=== PATIENT | female | born 2000 | race Caucasian/White ===

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

== ENCOUNTER 2022-07-14 13:09 | Emergency (ER) | payer OTHER, SELFPAY ==
[2022-07-14 13:19] VITALS: BP 126/71; PULSE 71; RESP 16; TEMP 36.8; O2SAT 100
--- NOTE | 2022-07-14 13:24 | ED.URI ---
HPI - URI/Sore Throat General Chief Complaint: Upper Respiratory Infection Stated Complaint: Sore throat even after meds hot flashes Time Seen by Provider: 07/14/22 13:25 History of Present Illness HPI Narrative: 21 y/o female presented for c/o sore throat for 3 days. Endorses sinus congestion and yellow drainage with cough, and hot flashes. Denies sob, wheezing, n/v/d. Taking otc meds for symptoms. Related Data Home Medications Medication Instructions Recorded Confirmed No Home Medications 08/02/21 08/02/21 Allergies Allergy/AdvReac Type Severity Reaction Status Date / Time clindamycin AdvReac Intermediate nausea Verified 07/14/22 13:24 Review of Systems Review of Systems: CONSTITUTIONAL: Denies body aches, fever, chills EYES: Denies visual changes, redness, or discharge. ENT: reports rhinorrhea, congestion, denies otalgia. CARDIOVASCULAR: Denies chest pain, palpitations, or edema. RESPIRATORY: Denies dyspnea. GASTROINTESTINAL: Denies abdominal pain, nausea, vomiting, or diarrhea. MUSCULOSKELETAL: Denies back pain, joint pain, or myalgia. NEUROLOGIC: Denies headache Exam Narrative: GENERAL: well-appearing, no acute distress. EYES: conjunctivae clear ENT: Mucous membranes moist. TMs pearly walters with normal light reflex bilaterally; no tragal tenderness. Oropharynx erythematous without lesions. Tonsils enlarged 1+ and without exudate. No drooling, no hoarseness, no trismus, uvula midline. No tripod positioning, hot potato voice, or soft palate swelling. NECK: Supple. No lymphadenopathy CHEST: Clear to auscultation, breath sounds equal. HEART: Regular rate and rhythm. No murmur heard. SKIN: Warm, dry, no rash. NEURO: Alert and oriented x3. Course Course Emergency Course: Patient is aware of diagnosis, understands and agrees to treatment plan. Anticipatory guidance given. Patient agrees to follow-up as directed and is aware of reasons to seek care at the emergency department. Portions of this record may have been created with voice recognition software Level of Care: Express Care Visit Vital Signs Vital signs: Vital Signs Temperature 98.2 F 07/14/22 13:19 Pulse Rate 71 07/14/22 13:19 Respiratory Rate 16 07/14/22 13:19 Blood Pressure 126/71 07/14/22 13:19 Pulse Oximetry 100 07/14/22 13:19 Oxygen Delivery Room Air 07/14/22 13:19 Temperature 98.2 F 07/14/22 13:19 Pulse Rate 71 07/14/22 13:19 Respiratory Rate 16 07/14/22 13:19 Blood Pressure 126/71 07/14/22 13:19 Pulse Oximetry 100 07/14/22 13:19 Oxygen Delivery Room Air 07/14/22 13:19 MDM - URI/Sore Throat MDM Narrative Medical decision making narrative: strep result reviewed with pt. Advise supportive treatments. Patient is appropriate for outpatient treatment and follow-up. Differential Diagnosis Differential diagnosis: Likely upper respiratory infection, viral infection and pharyngitis Lab Data Labs: Strep Screen Presumptive Negative *(Reference Range: Negative)* Discharge Plan Discharge Clinical Impression: Pharyngitis Patient Disposition: Home, Self-Care Condition: Stable Instructions: Antibiotic Form, Upper Respiratory Infection (ED) Additional Instructions: Rapid strep swab was negative today You will be notified in a few days if the culture comes back positive for strep, and appropriate antibiotics will be called in at that time. if symptoms are due to a viral illness, it is not treated with antibiotics. Viral symptoms can be present for up to 10-14 days. Recommend Flonase spray and Zyrtec for sinus congestion Cough syrup may cause drowsiness; avoid driving or take it at night time. Tylenol every 8 hours as needed for pain/fever Soft foods, cool liquids, warm tea. Gargle with warm saltwater twice a day. Chloraseptic spray and throat lozenges. Rest and stay hydrated. --Follow up with your PCP if sy
== END 2022-07-14 13:46 | disposition home or self-care (01) ==
PROVIDERS: Emergency Provider Nurse Practitioner Family
DX: J02.9 Acute pharyngitis, unspecified (principal)
CPT/HCPCS: 87081; 87880; 99213; G0463

== ENCOUNTER 2022-08-10 13:10 | Emergency (ER) | payer OTHER, SELFPAY ==
--- NOTE | ~2022-08-10 | XR_ITS ---
EXAMINATION: XR chest 2V 08/10/2022 14:22 INDICATION: Cough PROCEDURE: 2 view chest COMPARISON: No prior studies for comparison. FINDINGS: The lungs are clear. The cardiomediastinal silhouette is within normal limits. There are no pleural effusions. There is no pneumothorax suspected. IMPRESSION: 1: NO ACUTE CARDIOPULMONARY DISEASE. Reviewed, dictated and finalized at location A. ING MANAGER
[2022-08-10 13:29] VITALS: BP 140/98; PULSE 90; RESP 16; TEMP 36.6; O2SAT 100
--- NOTE | 2022-08-10 14:57 | ED.URI ---
HPI - URI/Sore Throat General Chief Complaint: Upper Respiratory Infection Stated Complaint: coughing up blood Time Seen by Provider: 08/10/22 13:30 History of Present Illness HPI Narrative: 21-year-old female presents the emergency room for cough. Patient was seen at an outside emergency room couple of days ago was diagnosed with the flu. Patient states that she has been coughing and using [id number] medications which are not alleviating her symptoms. Patient states that she recently noticed small amounts of blood in her sputum when she coughs. Denies shortness of breath difficulty breathing. Related Data Home Medications Medication Instructions Recorded Confirmed No Home Medications 08/02/21 08/02/21 Allergies Allergy/AdvReac Type Severity Reaction Status Date / Time clindamycin AdvReac Intermediate nausea Verified 07/14/22 13:24 Review of Systems Review of Systems: CONSTITUTIONAL: Denies fever, chills, or sweats. EYES: Denies visual changes, redness, or discharge. ENT: Denies rhinorrhea, congestion, sore throat, or otalgia. CARDIOVASCULAR: Denies chest pain, palpitations, or edema. RESPIRATORY: Reports cough GASTROINTESTINAL: Denies abdominal pain, nausea, vomiting, or diarrhea. GENITOURINARY: Denies dysuria or hematuria. SKIN: Denies rash or itching. MUSCULOSKELETAL: Denies back pain, joint pain, or myalgia. NEUROLOGIC: Denies headache, numbness, dizziness, or weakness. PSYCHIATRIC: Denies anxiety or depression. Exam Narrative: GENERAL: Well-appearing, well-nourished, no physical limitations, and in no acute distress. HEAD: Normocephalic, atraumatic. EYES: Conjunctivae normal, PERRLA and EOMI. ENT: External nose normal, Nares clear, no rhinorrhea or epistaxis. Mucous membranes moist. Oropharynx without tonsillar hypertrophy exudate or other lesions. External ears normal, bilateral TMs normal bilaterally NECK: Supple. No adenopathy or masses. CHEST: Clear to auscultation. No respiratory distress. No wheezes rales or rhonchi. HEART: Regular rate and rhythm. No murmur heard. Normal peripheral pulses. EXTREMITIES: Normal range of motion. No edema. No clubbing or cyanosis SKIN: Warm, dry, no rash. No noted wounds NEURO: No focal deficits. Alert and oriented x3. MAEW. CN's II-XI intact bilaterally, normal gait PSYCH: Cooperative. Normal mood and affect. Course Vital Signs Vital signs: Vital Signs Temperature 36.6 C 08/10/22 13:29 Pulse Rate 90 08/10/22 13:29 Respiratory Rate 16 08/10/22 13:29 Blood Pressure 140/98 H 08/10/22 13:29 Pulse Oximetry 100 08/10/22 13:29 Oxygen Delivery Room Air 08/10/22 13:29 Temperature 36.6 C 08/10/22 13:29 Pulse Rate 90 08/10/22 13:29 Respiratory Rate 16 08/10/22 13:29 Blood Pressure 140/98 H 08/10/22 13:29 Pulse Oximetry 100 08/10/22 13:29 Oxygen Delivery Room Air 08/10/22 13:29 Discharge Plan Discharge Clinical Impression: Influenza, Cough Patient Disposition: Home, Self-Care Condition: Stable Instructions: Antibiotic Form, Influenza (ED) Additional Instructions: Recommend Tylenol and ibuprofen as needed for your body aches and fever. Also recommend Mucinex DM for your cough. Influenza is a self-limiting illness and your symptoms should resolve within 7 days. Recommend following up with your PCP. Prescriptions: No Action No Home Medications Follow-up/Referrals: Rafael Roe DO [Physician] - PHYSICIAN,[employer] [Primary Care Provider] - Time of Disposition: 15:03
== END 2022-08-10 15:19 | disposition home or self-care (01) ==
PROVIDERS: Emergency Provider Nurse Practitioner Family
DX: J11.1 Influenza due to unidentified influenza virus with other respiratory manifestations (principal); R05.9 Cough, unspecified
CPT/HCPCS: 71046; 99283

== ENCOUNTER 2023-03-17 16:22 | Emergency (ER) | payer OTHER, SELFPAY ==
[2023-03-17 16:28] VITALS: BP 141/70; PULSE 82; RESP 20; TEMP 37; O2SAT 100
--- NOTE | 2023-03-17 16:29 | ED.ABDPAIN ---
HPI - Abdominal Pain General Chief Complaint: Abdominal Pain Stated Complaint: stomach hurts,headache,diarrhea Time Seen by Provider: 03/17/23 16:30 Source: patient Mode of arrival: ambulatory Limitations: no limitations History of Present Illness HPI narrative: Nicholas is a 22-year-old female patient presenting to the clinic today abdominal cramping, nausea, headache, and diarrhea x3 days. She reports no known fever or chills. She denies sore throat. States that she has started in a new building at work and is exposed to new people. No known exposure to anybody with COVID, flu, or strep. Has had diarrhea 3 times today. No vomiting. Her significant other who lives at home with her has similar symptoms. Is requesting a work note Related Data Allergies Allergy/AdvReac Type Severity Reaction Status Date / Time clindamycin AdvReac Intermediate nausea Verified 07/14/22 13:24 Review of Systems Review of Systems: Pertinent positives per HPI. Patient denies any fever, chills, rash, visual changes, dizziness, shortness of breath, chest pain, palpitations, vomiting, constipation, or any urinary issues. PMFSH Comments At the time of my signature, I reviewed and agree with the nursing past medical, surgical, social, and family history. There is no relevant family history pertinent to the patient complaint. Exam Narrative: General: Well-developed, well nourished, in no apparent distress Head: Normocephalic, atraumatic Eyes: Pupils equally round and reactive to light bilaterally, EOM intact, sclera and conjunctive clear, no discharge, lids normal Ears: TMs intact and clear, ear canals clear, no drainage, grossly hearing normal. Nose: Nares patent, no discharge, no inflammation, no sinus tenderness. Mouth: Oral pharynx without lesions or masses, good dentition, MMM. Neck: Supple, trachea midline, no enlargement of anterior or posterior cervical nodes, no thyroid masses or goiter palpable. Cardio: Regular rate and rhythm, s1 and s2 normal, no murmur appreciated. Resp: Clear to auscultation bilaterally, no rhonchi, rales, wheezing or rubs Abdomen: Soft, pliable, bowel sounds present in all quadrants, non-tender to palpation, no organomegly, no CVAT tenderness. Course Course Emergency Course: Portions of this record may have been created with voice recognition software. Level of Care: Express Care Visit Vital Signs Vital signs: Vital signs reviewed MDM - Abdominal Pain MDM Narrative Medical decision making narrative: At the time of visit patient is resting comfortably on exam table. COVID and influenza testing was performed in the clinic today and was negative. I suspect patient has viral gastroenteritis. Prescription for Zofran and Levsin was sent to the pharmacy. Supportive measures were discussed with the patient she voiced understanding discharge instructions and agrees to treatment plan. Differential Diagnosis Differential diagnosis: Likely abdominal pain, acute appendicitis, constipation, gastroenteritis and other Discharge Plan Discharge Clinical Impression: Viral gastroenteritis Patient Disposition: Home, Self-Care Condition: Stable Instructions: Antibiotic Form, Gastroenteritis (ED) Additional Instructions: COVID and flu test negative in the clinic today. Take prescription medications only as prescribed-Zofran and Levsin Increase fluids and stay well hydrated Tylenol/motrin for pain/fever Flonase and OTC antihistamines as directed Vicks vapor rub to open sinuses Sinus rinses for congestion Cepacol spray, cough drops, throat lozenges, warm tea with honey/lemon, gargle salt water to soothe throat BRAT diet for diarrhea Clear liquids x 24 hours then advance as tolerated for nausea/vomiting Go to the ED if you develop a worsening in your condition- high fever not controlled by Tylenol or Motrin, dehydration, weakness, lethargy, shortness of breath, or chest pain. Follow
== END 2023-03-17 17:07 | disposition home or self-care (01) ==
PROVIDERS: Emergency Provider Nurse Practitioner Family
DX: A08.4 Viral intestinal infection, unspecified (principal); Z20.822 Contact with and (suspected) exposure to COVID-19
CPT/HCPCS: 87426; 87804; 99213; C9803; G0463

== ENCOUNTER 2024-03-12 16:19 | Emergency (ER) | payer OTHER, SELFPAY ==
[2024-03-12 16:27] VITALS: BP 129/78; PULSE 86; RESP 18; TEMP 36.9; O2SAT 100
--- NOTE | 2024-03-12 16:59 | ED.DENTAL ---
HPI - Dental/Oral General Chief complaint: Dental/Oral Stated complaint: wisdom tooth pain Time Seen by Provider: 03/12/24 16:45 Source: patient, RN notes reviewed and old records reviewed Mode of arrival: ambulatory Limitations: no limitations History of Present Illness HPI Narrative: 23 year old female who presents to [facility] care with complaints of dental pain to tissue in left bottom where wisdom tooth is coming in with redness and swelling and pain of gum noted. Patient reports that tooth feels like it is tying to come in sideways with increased pain since yesterday. Patient reports that she has been having intermittent pain to area for the past 2 months.She reports that she does not have dentist. MD Complaint: tooth pain Location: Tooth # (17) Onset (ago): month(s) (intermittent for 2 months with increased for past 2 days) Duration: constant Severity scale (1-10): 5 Treatment prior to arrival: none Related Data Home Medications Medication Instructions Recorded Confirmed Nexplanon 03/12/24 Allergies Allergy/AdvReac Type Severity Reaction Status Date / Time amoxicillin Allergy Swelling Verified 03/12/24 17:13 of Lip/Tongue/Throat clindamycin AdvReac Intermediate nausea Verified 03/12/24 16:26 Review of Systems Review of Systems: CONSTITUTIONAL: Denies fever, chills, or sweats. ENT: Denies rhinorrhea, congestion, sore throat, or otalgia. Reports dental pain to #17 tooth which is trying to come in with redness swelling and pain of gum CARDIOVASCULAR: Denies chest pain, palpitations, or edema. RESPIRATORY: Denies cough or dyspnea. SKIN: Denies rash or itching. MUSCULOSKELETAL: Denies myalgia. NEUROLOGIC: Denies headache All systems reviewed & are unremarkable except as noted in HPI and below PMFSH Past Medical History Medical History History of dental problems Surgical History Surgical History Previous section Social History Social History Smoking status: Current every day smoker Tobacco type: cigarettes Alcohol intake: current Alcohol use details: social Substance use type: does not use Gender identity (if verbalized by the patient): Female Comments At time of signature, agree with nursing past medical, surgical, social and family history. There is no relevant family history pertinent to the presenting complaint Exam Narrative: GENERAL: Well-appearing, well-nourished, and in no acute distress. HEAD: Normocephalic, atraumatic. EYES: PERRLA and EOMI. ENT: Nares clear, no rhinorrhea or epistaxis. Mucous membranes moist.Swelling with redness of gum above where #17 wisdom tooth is trying to come through, caries noted. No trismus or any Jesús angina noted NECK: Supple.no lymphadenopathy CHEST: Clear to auscultation. No respiratory distress.SAO2 100% on room air HEART: Regular rate and rhythm. No murmur heard. Normal peripheral pulses. SKIN: Warm, dry, no rash.acne to face NEURO: No focal deficits. Alert and oriented x3. Course Course Emergency Course: Patient is aware of diagnosis, understands and agrees to treatment plan. Anticipatory guidance given. Patient agrees to follow-up as directed and is aware of reasons to seek care at the emergency department. Portions of this record may have been created with voice recognition software Level of Care: Express Care Visit Vital Signs Vital signs: Vital Signs Temperature 36.9 C 03/12/24 16:27 Pulse Rate 86 03/12/24 16:27 Respiratory Rate 18 03/12/24 16:27 Blood Pressure 129/78 03/12/24 16:27 Pulse Oximetry 100 03/12/24 16:27 Oxygen Delivery Room Air 03/12/24 16:27 Temperature 36.9 C 03/12/24 16:27 Pulse Rate 86 03/12/24 16:27 Respiratory Rate 18 03/12/24 16:27 Blood Pressure 129/78 03/12/24 16:27 Pulse Oximet
== END 2024-03-12 17:15 | disposition home or self-care (01) ==
PROVIDERS: Emergency Provider Registered Nurse
DX: K08.89 Other specified disorders of teeth and supporting structures (principal); F17.210 Nicotine dependence, cigarettes, uncomplicated
CPT/HCPCS: 99213; G0463

== ENCOUNTER 2024-03-29 18:44 | Emergency (ER) | payer OTHER, SELFPAY ==
[2024-03-29 18:50] VITALS: BP 121/69; PULSE 88; RESP 20; TEMP 36.4; O2SAT 100
--- NOTE | 2024-03-29 18:59 | ED.URI ---
HPI - URI/Sore Throat General Chief Complaint: Upper Respiratory Infection Stated Complaint: Sore Throat/Eye Problem Time Seen by Provider: 03/29/24 18:59 Source: patient, RN notes reviewed and old records reviewed Mode of arrival: ambulatory Limitations: no limitations History of Present Illness HPI Narrative: 23 year old female presents to [facility] care with complaints of 2 day history of sore throat, sinus congestion and drainage and ear pain. Patient also reports that she has 1 day history of left lower eyelid swelling, irritation and some itching, denies any change in her vision. Patient report that she has been taking Tylenol for hr discomfort about every 6-7 hours. Patient reports no known fevers, chills or sweats or any body aches. MD elicited complaint: cough and sore throat Onset (ago): day(s) (2 days) Pain scale (0-10): 5 Able to tolerate fluids by mouth: Yes Treatments prior to arrival: acetaminophen Related Data Home Medications Medication Instructions Recorded Confirmed Nexplanon 03/12/24 Allergies Allergy/AdvReac Type Severity Reaction Status Date / Time amoxicillin Allergy Swelling Verified 03/29/24 18:50 of Lip/Tongue/Throat clindamycin AdvReac Intermediate nausea Verified 03/29/24 18:50 Review of Systems Review of Systems: CONSTITUTIONAL: Denies malaise, chills, sweats, or fever. EYES: Denies visual changes, redness, or discharge, some redness and minimal swelling to the left lower inner eyelid, no conjunctiva or sclera redness ENT: Reports rhinorrhea, congestion,no sinus pain, positive otalgia and sore throat. CARDIOVASCULAR: Denies chest pain, palpitations, or edema. RESPIRATORY: Reports no cough.? Denies dyspnea. GASTROINTESTINAL: Denies abdominal pain, nausea, vomiting, diarrhea SKIN: Denies rash or itching. MUSCULOSKELETAL: Denies myalgia. NEUROLOGIC: Denies headache. All systems reviewed & are unremarkable except as noted in HPI and below PMFSH Past Medical History Medical History History of dental problems Surgical History Surgical History Previous section Social History Social History Smoking status: Current every day smoker Tobacco type: cigarettes Alcohol intake: current Alcohol use details: social Substance use type: does not use Gender identity (if verbalized by the patient): Female Comments At time of signature, agree with nursing past medical, surgical, social and family history. There is no relevant family history pertinent to the presenting complaint Exam Narrative: GENERAL: Well-appearing, well-nourished, and in no acute distress. HEAD: Normocephalic EYES: PERRLA, conjunctivae clear, small red area to left lower inner eyelid with some minimal swelling, no change in vision or any drainage noted,denies any acute pain to her left eye ENT: Nares clear, turbinates edematous and erythematous, clear discharge. Mucous membranes moist.Right TM red, Left TM pearly walters with dull light reflex; no tragal tenderness, no drainage from ears noted. Oropharynx erythematous without lesions. Tonsils not enlarged and without exudate, no drooling, no hoarseness, no trismus, uvula midline.post nasal drainage. NECK: Supple. No lymphadenopathy CHEST: Clear to auscultation, breath sounds equal. No wheezing, rhonchi, rales, or stridor. No respiratory distress, speaks in full sentences.SAO2 100% on room air HEART: Regular rate and rhythm. No murmur heard. SKIN: Warm, dry, no rash. NEURO: Alert and oriented x3. PSYCH: Normal mood and affect Course Course Emergency Course: Patient is aware of diagnosis, understands and agrees to treatment plan.? Anticipatory guidance given.? Patient agrees to follow-up as directed and is aware of reasons to seek care at the emergen
[2024-03-29 19:00] VITALS: BP 121/69; PULSE 88; RESP 20; TEMP 36.4; O2SAT 100
[2024-03-29 19:11] LABS: EDSTREPNEGPOS1 Presumptive Negative
== END 2024-03-29 19:25 | disposition home or self-care (01) ==
PROVIDERS: Emergency Provider Registered Nurse; PCP Nurse Practitioner Family
DX: H00.015 Hordeolum externum left lower eyelid (principal); H65.01 Acute serous otitis media, right ear; F17.210 Nicotine dependence, cigarettes, uncomplicated
CPT/HCPCS: 87081; 87880; 99213; G0463

== ENCOUNTER 2025-03-21 15:42 | Emergency (ER) | payer SELFPAY ==
--- OUTSIDE RECORDS SUMMARY | 2025-03-21 15:44 | XMS_ITS | Clinical Summary ---
Author Organization [facility] Address [address] [place] [address] Phone Care Team Providers Care Hot Metal Car Operator Name Role Phone MarileeAnnie Esther BEE Primary Care Provider [phone] Allergies Active Allergy Reactions Criticality Noted Date Comments Clindamycin Rash 03/22/2019 Medications etonogestrel (Nexplanon) 68 MG Implant by Subcutaneous route. 8 Active ergocalciferol (VITAMIN D) 05254 UNIT Capsule Take 1 Capsule by mouth once a week. 12 Capsule 4 Active Active Problems No known active problems Immunizations Immunization Administration Dates Next Due DTAP VACCINE 05/14/2003,02/24/2003,01/01/2003 DTAP VACCINE, UNSPECIFIED FORMULATION 04/09/2007 ,12/14/2003 HEP B/HIB Combined Vaccine 05/14/2003,02/24/2003 ,01/01/2003 Hepatitis A Vaccine,unspecified Formulation 12/03,06/03/2007 Hib Vaccine,unspecified Formulation 11/10/2003 Human Papillomavirus (HPV) 9-valent Vaccine 11/2019 Human Papillomavirus Vaccine (HPV), quadrivalent 06/04/2017,05/18/2014 Inactivated Polio Vaccine 05/14/2003,02/24/2003, 01/01/2003 Influenza Vaccine Nasal 11/23/2010 Influenza Vaccine, Quadrivalent, PF 06/05/2020,1 09/17/2016,06/04/2017 Influenza, Seasonal, Injectable, Undefined 10/09 MMR Vaccine 04/09/2007,11/10/2003 Meningococcal MCV4O 12/30/2012 Meningococcal Vaccine 05/18/2014 Pneumococcal Vaccine - 13 Valent 11/10/2003 Pneumococcal Vaccine Peds - 7 Valent 05/14/2003, 02/24/2003,01/01/2003 Polio Vaccine,unspecified Formulation 04/09/2007 TDAP Vaccine 05/18/2014 Varicella Vaccine Live 04/09/2007,11/10/2003 Social History Tobacco Use Types Packs/Day Years Used Date Smoking Tobacco: Some Days Cigarettes Smokeless Tobacco: Never Tobacco Cessation:Ready to Q uit: Not Asked; Counseling Given: Not Answered Alcohol Use Standard Drinks/Week Comments Not Currently 0 (1 standard drink = 0.6 oz pur e alcohol) PHQ-2 Answer Date Recorded Total Score - Questions 1-9 0 06/04 Sexually Active Control Partners Comments Yes Implant Male Nexplanon Comments No Sex and Gender Information Value Date Recorded Sex Assigned at Not on file Legal Sex Female 3:50 PM CDT Gender Identity Not on file Sexual Orientation Not on file Last Filed Vital Signs Vital Sign Reading Time Taken Comments Blood Pressure 144/79 12/05/2024 11:38 AM CDT Pulse 83 12/05/2024 11:38 AM CDT Temperature 37.2 C (98.9 F) 12/05/2024 11:38 AM CDT Respiratory Rate 18 12/05/2024 11:38 AM CDT Oxygen Saturation 100% 12/05/2024 11:38 AM CDT Inhaled Oxygen Concentration - - Weight 68 kg (150 lb) 12/05/2024 11:38 AM CDT Height 160 cm (5' 3) 12/05/2024 11:38 AM CDT Body Mass Index 26.57 12/05/2024 11:38 AM CDT Plan of Treatment Health Maintenance Due Date Last Done Comments Hepatitis C Virus (HCV) Screening 2002 Pneumococcal Immunization Combined (1 of 1 - PPSV23) 2008 11/10/2003, 05/14/2003, 02/24/2003, Additional history exists Meningococcal B Immunization (1 of 2 - Standard) 2018 Pap Smear 2023 SARS-COV-2 Immunization ( - 2024-25 season) 2024 Influenza Immunization (#1) 05/04/20250 11/2019, 07/18/2017, 06/04/2017, Additional history exists DTaP/Tdap/Td Immunization (8 - Td or Tdap) 11/28/2027 11/27/2017, 05/18/2014, 04/09/2007, Additional history exists Respiratory Syncytial Virus (RSV) Immunization (Adult) (1 - 1-dose 75+ series) 2077 Hepatitis B Immunization Completed 003, 02/24/2003, 01/01/2003 Polio (IPV) Immunization Discontinued 003, 02/24/2003, 01/01/2003 Measles Mumps Rubella (MMR) Immunization Discontinued 04/09/2007, 11/10/2003 Varicella Immunization Discontinued 04/09/2007, 2003 Hepatitis A Immunization Discontinued 12/23/2007, 09/2006 Meningococcal Immunization (ACWY) Aged Out 05/18/2014, 12/30/2012 No longer eligibl e based on patient's age to complete this topic TdaP Immunization Discontinued 11/27/2017, 05/18/2014 Human Papillomavirus (HPV) Immunization Completed 06/05/2020, 06/04/2017, 05/18/2014 Rotavirus Immunization Aged Out No lo nger eligible based on patient's age to complete this topic Care Teams Hot Metal Car Operator Relationship Specialty Start Date End Date Annie Hunt DO [address] [place] [address] PCP - General Family Medicine 06/27/24
--- OUTSIDE RECORDS SUMMARY | 2025-03-21 15:44 | XMS_ITS | Clinical Summary ---
Author Organization [email or web address] Address [address] [place] [address] Care Team Providers Care Mold Yard Crane Operator Name Role Phone Jerry Ortiz MD Primary Care Provider [phone] Source Comments [email or web address],non-owned Affiliates and Associated Physician Practices is amultiple site organization consisting of ambulatory clinics and hospital sitesin [place], [place], [place] and [place]. This disclosure is being madepursuant to the Care Everywhere program and may not contain all information available regarding this patient. Last updated 18.[email or web address] Allergies No known active allergies Medications * Be aware that medications may not be up to date on this document. Alwaysverify current medications with the patient. ferrous sulfate 325 (65 FE) MG tablet Take 325 mg by mouth once daily Active acyclovir (ZOVIRAX) 400 MG tablet Take 400 mg by mouth 2 times daily Active Pediatric Multiple Vit-C-FA ([facility] OMEGA-3 DHA PO) Active acetaminophen (TYLENOL) 325 MG tablet Take 325 mg by mouth every 4 hours as needed for Headache Maximum allowable Acetaminophen amount = 4 Grams (4000 mg) / 24 hours. Active nitrofurantoin monohyd macro crystals (MACROBID) 100 MG capsule Take 100 mg by mouth 2 times daily with morning and evening meal Active Active Problems Problem Noted Date Diagnosed Date Depression screen 08/20/2017 Overview (10/22/2017): 08/20/2017 iVanney Weiss was screened for depression using the [place] Depression Scale (EPDS) at her [facility] initial evaluation on 08/20/2017. Her initial score at baseline was 0. Based off of her score of 0, Vianney will not receive a follow up. Patient will continue to be screened throughout , at intervals no closer than two weeks, for continued surveillance and early identification of depression until delivery. Patient denies mental health history. 10/22/2017 EPDS Score- 0 Resolved Problems Problem Noted Date Diagnosed Date Resolved Date Dilation of renal pelvis 10/22/2017 High risk teen in third trimester 10/22/2017 11/28/2017 abnormality in previou s - Bilateral Hydronephrosis 08/03/2017 11/28/2017 Overview (11/28/2017): Images from the original note were not included. CUSTODIAL PATIENT--PLEASE CALL [phone] IF TRIAGED OR ADMITTED This patient has delivered Care Provider: Dr. Ortiz [facility] consultants involved: Nurse Coordinator- Sheldon; MFM- Zuleima; Urology- Milton; Footprints- Sr. Meier Diagnosis: Bilateral Hydronephrosis UTD grade 2/3 follow up: If Normal HEAVEN and no other anomalies: a. Strict I/O s during hospital stay b. Monitor blood pressure during hospital stay c. 48 hours of life obtain lytes and creatinine d. Start prophylactic Amoxicillin 20 mg/kg PO daily [facility]- Schedule renal ultrasound at 48 hours of life- Please use Dr. Jourdan Rose as the ordering physician Factory Helper: Dr. Yonatan Arzate ([facility]) Planned surveillance: Weekly NST/BPP with HEAVEN Delivery location, mode, and GA: [facility] Autopsy indicated: Genetics note: [facility] Concerns: 08/20/17- Teenage - pt is 16 and FOB is 18- family is very supportive and committed to helping them out Care plan based on evaluation and is subject to change based on assessment. See Images or Cardiac under Chart Review for US/ ECHO/ MRI reports. Family History Relation Name Status Comments Other 1 MOB paternal cousin microcep haly Other 2 MOB paternal uncle Other Trisomy 2 1 Social History Tobacco Use Types Packs/Day Years Used Date Smoking Tobacco: Never Smokeless Tobacco: Never Alcohol Use Standard Drinks/Week Comments No 0 (1 standard drink = 0.6 oz pur e alcohol) Comments No Sex and Gender Information Value Date Recorded Sex Assigned at Not on file Legal Sex Female 5:43 AM NIB ASSEMBLER Gender Identity Female 08/20/2017 10:45 AM NIB ASSEMBLER Sexual Orientation Not on file Last Filed Vital Signs Vital Sign Reading Time Taken Comments Blood Pressure 138/78 11/20/2017 1:39 PM CDT Pulse 81 11/20/2017 1:39 PM CDT Temperature - - Respiratory Rate - - Oxygen Saturation - - Inhaled Oxygen Concentration - - Weight 78 kg (171 lb 15.3 oz) 10/22/2017 11:27 A M NIB ASSEMBLER Height - - Body Mass Index - - Plan of Treatment Health Maintenance Due Date Last Done Comments HIV SCREENING 2017 HPV VACCINE (1 - 3-dose series) 2017 CHLAMYDIA/GONORRHEA SCREENING 2018 MENINGOCOCCAL (Group B) VACC INE SHARED DECISION-MAKING (1 of 2 - Standard) 2018 HEPATITIS C SCREENING 10/24/2020 DTAP/TDAP/TD VACCINES (1 - Tdap) 2021 HEPATITIS B VACCINE (1 of 3 - 19+ 3-dose series) 2021 COVID-19 VACCINE (1 - 2023-2 5 season) 2024 DEPRESSION SCREENING 09/03/2024 INFLUENZA VACCINE (#1) 2025 ZOSTER VACCINE (1 of 2) 2052 HIB VACCINE Aged Out No longer eligi ble based on patient's age to complete this topic MENINGOCOCCAL GROUPS A/C/Y/W VACCINE Aged Out No longer eligible b ased on patient's age to complete this topic PNEUMOCOCCAL VACCINE Aged Out No long er eligible based on patient's age to complete this topic Additional Health Concerns Infection Onset Date Last Indicated MRSA 05/22/2008 05/22/2008 Insurance [facility] Care Teams Mold Yard Crane Operator Relationship Specialty Start Date End Date Jerry Ortiz MD [address] [place] [address] PCP - General Obstetrics and Gynecology 09/21/17
[2025-03-21 15:49] VITALS: BP 133/68; PULSE 77; RESP 20; TEMP 36.4; O2SAT 100
--- NOTE | 2025-03-21 15:55 | ED_ITS ---
HPI - Eye Problem General Chief complaint: Eye Problems Stated complaint: Right Eye Swelling/Ear Pain Time Seen by Provider: 03/21/25 15:56 Source: patient Mode of arrival: ambulatory Limitations: no limitations History of Present Illness HPI Narrative: 24 y/o female presented for c/o bilateral ear pain x2 days as well as left upper eye lid pain, redness and swelling. Onset this morning. Says the eyelid felt irritated yesterday. Denies vision changes, photophobia, foreign body sensation, n/v/d/f/c. chief complaint: eye pain Related Data Home Medications ?Medication ?Instructions ?Recorded ?Confirmed ?Last Taken ?Type Nexplanon 03/12/24 Unknown History Allergies Allergy/AdvReac Type Severity Reaction Status Date / Time amoxicillin Allergy Swelling Verified 03/21/25 15:56 of Lip/Tongue/Throat clindamycin AdvReac Severe Swelling Verified 03/21/25 15:56 of the Eye Review of Systems Review of Systems: CONSTITUTIONAL: Denies body aches, fever, chills EYES:Endorses swelling, redness and pain to left eye; Denies visual changes, FB sensation, photophobia ENT: Denies rhinorrhea, congestion, sore throat, reports bilateral otalgia. CARDIOVASCULAR: Denies chest pain, palpitations RESPIRATORY: Denies cough or dyspnea. SKIN: Denies rash, itching, or wounds. NEUROLOGIC: Denies headache All systems reviewed & are unremarkable except as noted in HPI and below PMFSH Past Medical History Medical History History of dental problems Surgical History Surgical History Previous section Social History Social History Smoking status: Current every day smoker Tobacco type: cigarettes Alcohol intake: current Alcohol use details: social Substance use type: does not use Gender identity (if verbalized by the patient): Female Comments At time of signature, I have reviewed and agree with nursing past medical, surgical, social and family history unless otherwise noted. Please see nursing chart for further information. There is no relevant family history pertinent to the presenting complaint Exam Narrative: GENERAL: Well-appearing HEAD: Normocephalic, atraumatic. EYES: Left upper eye lid swelling/redness c/w stye. PERRLA, EOMI. Lid eversion shows no FB. no conjunctival injection ENT: Mucous membranes pink and moist. No rhinorrhea. TMs normal bilaterally. Throat normal. Uvula midline. CHEST: Clear to auscultation. HEART: Regular rate and rhythm. SKIN: Warm, dry, no rash. Normal skin turgor. NEURO: No focal deficits. Alert and oriented x3 PSYCH: Normal affect. Course Course Emergency Course: Patient is aware of diagnosis, understands and agrees to treatment plan. Anticipatory guidance given. Patient agrees to follow-up as directed and is aware of reasons to seek care at the emergency department. Portions of this record may have been created with voice recognition software Level of Care: Express Care Visit Vital Signs Vital signs: Vital Signs Temperature 97.5 F L 03/21/25 15:49 Pulse Rate 77 03/21/25 15:49 Respiratory Rate 20 03/21/25 15:49 Blood Pressure 133/68 03/21/25 15:49 Pulse Oximetry 100 03/21/25 15:49 Oxygen Delivery Room Air 03/21/25 15:49 Temperature 97.5 F L 03/21/25 15:49 Pulse Rate 77 03/21/25 15:49 Respiratory Rate 20 03/21/25 15:49 Blood Pressure 133/68 03/21/25 15:49 Pulse Oximetry 100 03/21/25 15:49 Oxygen Delivery Room Air 03/21/25 15:49 MDM - Eye Problem MDM Narrative Medical decision making narrative: Discussed physical exam findings consistent with the left upper eyelid internal hordeolum. Large amount of erythema and swelling noted, RX oral antibiotic.. Advised supportive measures and signs/symptoms to go to the ER. Pt is appropri ate for outpt treatment and f/u. Differential Diagnosis Differential diagnosis: Likely corneal abrasion, conjunctivitis, acute iritis and other Discharge Plan Discharge Clinical Impression: Internal hordeolum of left eye, Otalgia of both ears Patient Disposition: Home Condition: Stable Instructions: Antibiotic Form, Stye (ED) Additional Instructions: Apply warm, moist compresses on the left eye lid frequently (for 5 to 10 minutes three to five times per day) in order to help with drainage. Massage and gentle wiping of the affected eyelid after the warm compress can also help with drainage. You can use baby shampoo to wash the eye area Avoid wearing eye makeup or contact lenses Take medication as directed. If the lesion does not improve within one week, please follow up with an small products i assembler for further management. go to the ER for worsening symptoms or concerns Patient Language: Rwandan Prescriptions: New levofloxacin 500 mg tablet 500 mg PO DAILY 7 Days Qty: 7 0RF No Action Nexplanon Follow-up/Referrals: UNKNOWN,DOCTOR [Primary Care Provider] - Stand Alone Forms: Work/School Release IP Time of Disposition: 16:14
== END 2025-03-21 16:16 | disposition home or self-care (01) ==
PROVIDERS: Emergency Provider Nurse Practitioner Family
DX: H00.024 Hordeolum internum left upper eyelid (principal); H92.03 Otalgia, bilateral; F17.210 Nicotine dependence, cigarettes, uncomplicated
CPT/HCPCS: 99213; G0463